=== PATIENT | female | born 1935 | race Caucasian/White ===

== ENCOUNTER 2020-11-23 11:30 | Emergency (ER) | payer MEDICARE, OTHER ==
--- NOTE | 2020-11-23 11:35 | EDM.PDOC ---
ED HPI GENERAL MEDICAL PROBLEM - General Stated Complaint: HIGH BLOOD PRESURE Time Seen by Provider: 11/23/20 11:35 Source of Information: Reports: Patient History Limitations: Reports: No Limitations - History of Present Illness INITIAL COMMENTS - FREE TEXT/NARRATIVE: 85-year-old female who reports a 9 AM she will just morning and she was going to the bathroom and felt very dizzy and had blurry vision. She also just felt weak all over. She had no chest pain. There is no nausea or vomiting. She has had some lower abdominal discomfort and some hemorrhoidal pain for about 3-4 weeks. Those seem to be troubling her today as well. She reports that it is an ache and a discomfort and a sore pain and she rates that pain as a 2/10. She has no pain elsewhere and no other pains. She apparently is supposed to have cataract surgery on this coming and she read the paper and thought that the paper said that she is not supposed to be taking her blood pressure medications for a week before the surgery. Therefore, she has not taken her blood pressure medications for the past 3 days. She states she has really not taken most of her other medicines as well because she was unsure if she was supposed to be taking those either. She went over to see her son who lives next door to her and her blood pressure was 200+ over 100+ at that time and therefore she was brought into the emergency department for evaluation. Her apparently in July of this year and she has been living by herself (with family members visiting her frequently apparently) since then and has been depressed. She talks frequently about her and how loss she feels without him. She does seem to be depressed related to this but is awake and alert and able to give a good history. There are no other associated signs or symptoms. There are no other modifying factors. 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 (see below) (Nothing.) - Related Data Allergies Allergy/AdvReac Type Severity Reaction Status Date / Time chlorpheniramine Allergy Cannot Verified 11/23/20 12:08 [From Tarci] Remember oxymetazoline [From Traci] Allergy Cannot Verified 11/23/20 12:08 Remember Penicillins Allergy Anaphylactic Verified 11/23/20 12:08 Shock pheniramine [From Traci] Allergy Cannot Verified 11/23/20 12:08 Remember phenylephrine [From Traci] Allergy Cannot Verified 11/23/20 12:08 Remember pseudoephedrine Allergy Cannot Verified 11/23/20 12:08 [From Traci] Remember simvastatin Allergy Muscle Verified 11/23/20 12:08 Aches trifluoperazine Allergy Cannot Verified 11/23/20 12:08 [From Stelazine] Remember Home Meds: Home Meds Cholecalciferol (Vitamin D3) [Vitamin D3] 2,000 unit PO DAILY 02/10/18 [History] Cinnamon Bark [Cinnamon] 500 mg PO DAILY 02/10/18 [History] Cyanocobalamin (Vitamin B-12) [Vitamin B-12] 2,000 mcg SL DAILY 02/10/18 [History] Hydrocortisone [Anusol-HC] 1 applic RECTAL BID PRN 02/10/18 [History] Levothyroxine Sodium [Levoxyl] 50 mcg PO DAILY 02/10/18 [History] Meclizine HCl 12.5 mg PO TID PRN 02/10/18 [History] NIFEdipine [Nifedipine ER] 90 mg PO DAILY 02/10/18 [History] [place]-3/DHA/Epa/Fish Oil [[place]-3 Fish Oil 1,000 MG Sfgl] 1 cap PO DAILY 02/10/18 [History] Oxybutynin Chloride 5 mg PO BID 02/10/18 [History] Ranitidine [Zantac] 75 mg PO BID 02/10/18 [History] Venlafaxine HCl [Venlafaxine HCl ER] 150 mg PO DAILY 02/10/18 [History] Vit C/E/Zn/Coppr/Lutein/Zeaxan [Preservision Areds 2 Softgel] 1 tab PO DAILY 02/10/18 [History] atenoloL [Atenolol] 50 mg PO DAILY 02/10/18 [History] atorvaSTATin Calcium [Atorvastatin Calcium] 10 mg PO BEDTIME 02/10/18 [History] hydroCHLOROthiazide [Microzide] 12.5 mg PO DAILY 02/10/18 [History] metFORMIN HCl [Metformin HCl] 500 mg PO BID 02/10/18 [History] Past Medical History HEENT History: Reports: Impaired Vision Cardiovascular History: Reports: High Cholesterol, Hypertension Gastrointestinal History: Reports: GERD, Hemorrhoids, Irritable Bowel Syndrome Musculoskeletal History: Reports: Arthritis Psychiatric History: Reports: Anxiety, Depression Endocrine/Metabolic History: Reports: Diabetes, Type II, Hypoparathyroidism, Vitamin D Deficiency - Past Surgical History HEENT Surgical History: Reports: Oral Surgery (Dental implant surgery), Tonsillectomy GI Surgical History: Reports: Appendectomy, Colonoscopy, EGD Female Surgical History: Reports: Hysterectomy Social & Family History - Tobacco Use Tobacco Use Status *Q: Unknown Ever Used Tobacco (Nonsmoker) - Alcohol Use Alcohol Use History: No - Living Situation & Occupation Living situation: Reports: Occupation: Retired ED ROS GENERAL - Review of Systems Review Of Systems: See Below Constitutional: Reports: Weakness. Denies: Fever, Chills HEENT: Reports: Glasses, Vision Change (Blurry vision). Denies: Throat Pain, Throat Swelling Respiratory: Denies: Shortness of Breath, Cough Cardiovascular: Denies: Chest Pain, Dyspnea on Exertion, Palpitations Endocrine: Denies: Polydypsia, Polyuria GI/Abdominal: Reports: Abdominal Pain (Chronic), Other (Hemorrhoidal pain). Denies: Nausea, Vomiting : Reports: Dysuria Musculoskeletal: Reports: Other (Diffuse myalgias and musculoskeletal pains that she relates to fibromyalgia.) Skin: Denies: Diaphoresis, Rash Neurological: Reports: Dizziness. Denies: Headache Psychiatric: Reports: Anxiety Hematologic/Lymphatic: Denies: Anemia, Easy Bleeding, Easy Bruising ED EXAM, GENERAL - Physical Exam Exam: See Below Exam Limited By: No Limitations General Appearance: Alert, WD/WN, Anxious Eye Exam: Bilateral Eye: EOMI, Normal Inspection, PERRL Ears: Normal External Exam, Hearing Grossly Normal Ear Exam: Bilateral Ear: Auricle Normal Nose: Normal Inspection, Normal Mucosa, No Blood Throat/Mouth: Normal Inspection, Normal Oropharynx, Normal Voice, No Airway Compromise Head: Atraumatic, Normocephalic Neck: Normal Inspection, Supple, Non-Tender, Full Range of Motion Respiratory/Chest: No Respiratory Distress, Lungs Clear, Normal Breath Sounds, No Accessory Muscle Use, Chest Non-Tender Cardiovascular: Normal Peripheral Pulses, Regular Rate, Rhythm. No: No Murmur Peripheral Pulses: 2+: Radial (L), Radial (R), Dorsalis Pedis (L), Dorsalis Pedis (R) GI/Abdominal: Normal Bowel Sounds, Soft, Non-Tender Back Exam: Normal Inspection, Full Range of Motion Extremities: Normal Inspection, Normal Range of Motion, Non-Tender, No Pedal Edema, Normal Capillary Refill Neurological: Alert, Oriented, CN II-XII Intact, Normal Cognition, No Motor/Sensory Deficits Psychiatric: Anxious, Depressed Mood Skin Exam: Warm, Dry, Intact, Normal Color, No Rash #1 Interpretation EKG Date: 11/23/20 Time: 11:33 Rhythm: NSR Rate (Beats/Min): 96 Marks: Normal P-Wave: Enlarged QRS: Normal ST-T: Other (LVH with repolarization abnormality) QT: Normal Comparison: No Change (No significant change from an EKG performed on 02/10/2018. This EKG appears to be incorrectly labeled as atrial flutter with a 4-1 block when it in fact appears to be a sinus rhythm.) Course - Vital Signs Last Recorded V/S: Last Vital Signs Temp 36.6 C 11/23/20 11:30 Pulse 90 11/23/20 11:30 Resp 17 11/23/20 11:30 BP 214/103 H 11/23/20 11:30 Pulse Ox 98 11/23/20 11:30 - Orders/Labs/Meds Orders: Active Orders 24 hr Category Date Time Status Chest 1V Frontal [CR] Stat Exams 11/23/20 11:36 Taken Sodium Chloride 0.9% [Saline Flush] Med 11/23/20 11:36 Active 10 ml FLUSH ASDIRECTED PRN Peripheral IV Insertion Adult [OM.PC] Routine Oth 11/23/20 11:36 Ordered EKG 12 Lead [EK] Routine Ther 11/23/20 11:36 Ordered Medication Orders Sodium Chloride (Sodium Chloride 0.9% 10 Ml Syringe) 10 ml FLUSH ASDIRECTED PRN PRN Reason: Keep Vein Open Last Admin: 11/23/20 12:06 Dose: 10 ml Documented by: CAIN Labs: Laboratory Tests 11/23/20 11/23/20 11/23/20 Range/Units 12:00 12:00 12:00 WBC 8.7 (3.0-10.3) x10-3/uL RBC 5.29 H (3.60-5.20) x10(6)uL Hgb 15.5 (11.4-15.5) g/dL Hct 47.8 (34.2-48.2) % MCV 90.4 (76.7-100.5) fL MCH 29.3 (23.9-33.9) pg MCHC 32.4 (31.9-34.8) g/dL RDW 13.4 (12.3-16.5) % Plt Count 259 (151-488) x10(3)uL MPV 8.2 (7.1-12.4) fL Neut % (Auto) 74.1 (30.8-76.2) % Lymph % (Auto) 16.2 L (18.4-52.1) % [place] % (Auto) 6.1 (4.4-15.7) % Eos % (Auto) 2.7 (0.6-8.1) % Baso % (Auto) 0.9 (0.2-1.5) % Neut # (Auto) 6.4 H (1.5-6.3) x10-3/uL Lymph # (Auto) 1.4 (1.0-4.4) x10-3/uL [place] # (Auto) 0.5 (0.3-1.0) x10-3/uL Eos # (Auto) 0.2 (0.0-0.8) x10-3/uL Baso # (Auto) 0.1 (0.0-0.1) x10-3/uL Sodium 144 (135-145) mmol/L Potassium 4.1 (3.5-5.3) mmol/L Chloride 106 (100-110) mmol/L Carbon Dioxide 29 (21-32) mmol/L BUN 12 (7-18) mg/dL Creatinine 1.1 H (0.55-1.02) mg/dL Est Cr Clr Drug Dosing TNP Estimated GFR (MDRD) 47 L (>60) BUN/Creatinine Ratio 10.9 (9-20) Glucose 148 H (80-116) mg/dL Calcium 10.5 H (8.6-10.2) mg/dL Magnesium 2.0 (1.8-2.5) mg/dL Total Bilirubin 0.4 (0.1-1.3) mg/dL AST 22 D (5-25) IU/L ALT 34 D (12-36) U/L Alkaline Phosphatase 104 (56-112) IU/L Troponin I 58.7 (4.0-60.3) pg/mL Total Protein 7.6 (6.0-8.0) g/dL Albumin 3.6 (3.2-4.6) g/dL Globulin 4.0 g/dL Albumin/Globulin Ratio 0.9 Meds: Medications Generic Name Dose Route Start Last Admin Trade Name Freq PRN Reason Stop Dose Admin Sodium Chloride 10 ml 11/23/20 11:36 11/23/20 12:06 Sodium Chloride 0.9% 10 Ml Syringe FLUSH 10 ml ASDIRECTED PRN Administration Keep Vein Open Discontinued Medications Generic Name Dose Route Start Last Admin Trade Name Freq PRN Reason Stop Dose Admin Lisinopril 40 mg 11/24/20 11:40 Lisinopril 40 Mg Tab PO 11/24/20 11:41 ONETIME ONE Lisinopril 40 mg 11/23/20 11:56 11/23/20 12:00 Lisinopril 40 Mg Tab PO 11/23/20 11:57 40 mg ONETIME ONE Administration Lorazepam 0.5 mg 11/23/20 12:24 11/23/20 12:28 Lorazepam 2 Mg/Ml Sdv IVPUSH 11/23/20 12:25 0.5 mg ONETIME ONE Administration Nifedipine 60 mg 11/23/20 11:38 11/23/20 11:55 Nifedipine 60 Mg Tab.Er PO 11/23/20 11:39 60 mg ONETIME ONE Administration Spironolactone 25 mg 11/23/20 11:38 11/23/20 11:55 Spironolactone 25 Mg Tab PO 11/23/20 11:39 25 mg ONETIME ONE Administration - Radiology Interpretation Free Text/Narrative:: Portable chest x-ray showed no acute disease per my read. - Re-Assessments/Exams Free Text/Narrative Re-Assessment/Exam: 11/23/20 12:40: The portable chest x-ray was normal. The white blood cell count was normal. The hemoglobin was normal. The creatinine is 1.1. LFTs are normal. T roponin was normal. An EKG showed real change from an EKG performed on 02/10/2018. The patient was given her usual blood pressure medications which included lisinopril 40 mg, nifedipine XL 60 mg and spironolactone 25 mg orally. Her blood pressure already is down into the 160 systolic and she is feeling somewhat improved. She also appears to be very anxious related to this and I will have the nursing staff give her Ativan 0.5 mg IV. The plan will be to continue to observe her and make sure that her blood pressure has normalized and her symptoms are continuing to severo. I feel she will be able to go home. 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 11/23/20 13:50: Patient feels much improved. Her blood pressure is 160/75. She has no more dizziness and no more vision problems. I have explained to her that she needs to take her medications daily. And I have asked the son to call the doctor's office to clarify what she is supposed to do with her medications. Cautions and reasons for return to the emergency department were discussed with the patient and with the son while the patient was in the emergency Department and were detailed in the patient's discharge instructions. Departure - Departure Time of Disposition: 13:57 Disposition: Home, Self-Care 01 Condition: Good (Improved) Clinical Impression: Noncompliance with medication regimen, Anxiety Hypertension Qualifiers: Hypertension type: unspecified Qualified Code(s): I10 - Essential (primary) hypertension - Discharge Information Instructions: Hypertension, Adult, [id number] Referrals: Filipe Concepcion PA [Primary Care Provider] - Additional Instructions: All of your blood tests were reassuring. Your EKG showed no real change from an EKG performed 2-1/2 years ago. There is no heart attack pattern. Your exam was reassuring. As we discussed, you need to take your medications daily as directed by your doctor. You definitely need to take your blood pressure medications every day. Call the doctor's office (on this Wednesday) that is doing your surgery to clarify what you are supposed to do with your medication. You must tell them that not taking her blood pressure medications is not an option. Increase your fluid intake. Back to the emergency department for localized area of weakness or numbness, severe headache, high fever difficulty breathing, vomiting or any other concerning signs or symptoms. Sepsis Event Note (ED) - Focused Exam Vital Signs: Vital Signs Temp Pulse Resp BP Pulse Ox 11/23/20 11:30 36.6 C 90 17 214/103 H 98 - My Orders Last 24 Hours: My Active Orders 11/23/20 11:36 Chest 1V Frontal [CR] Stat Sodium Chloride 0.9% [Saline Flush] 10 ml FLUSH ASDIRECTED PRN Peripheral IV Insertion Adult [OM.PC] Routine EKG 12 Lead [EK] Routine - Assessment/Plan Last 24 Hours: My Active Orders 11/23/20 11:36 Chest 1V Frontal [CR] Stat Sodium Chloride 0.9% [Saline Flush] 10 ml FLUSH ASDIRECTED PRN Peripheral IV Insertion Adult [OM.PC] Routine EKG 12 Lead [EK] Routine
[2020-11-23] MEDS ORDERED: Sodium Chloride 0.9% 10 ML Syringe FLUSH PRN (11:36)
[2020-11-23] MEDS ORDERED: Spironolactone 25 MG Tab PO ONE (11:38)
[2020-11-23] MEDS ORDERED: NIFEdipine 60 MG Tab.ER PO ONE (11:38)
[2020-11-23] MEDS ORDERED: LORazepam 2 MG/ML SDV IVPUSH ONE (12:24)
--- NOTE | 2020-11-25 12:39 | CR ---
INDICATION: Dizziness, high blood pressure. CHEST, ONE VIEW: An AP upright portable view of the chest 11/23/20 was compared with 10/16/20. The aorta is tortuous with calcification, as noted previously. The heart did not appear grossly enlarged. Overlying EKG leads are noted. A definite active infiltrate or effusion was not identified. IMPRESSION: 1. No acute process. 2. ASD aorta. 3. Moderate dextroconvex scoliosis again noted thoracic spine. MTDD
== END 2020-11-23 14:20 | disposition home or self-care (01) ==
LOC: FB.ED 11:30
DX: F41.9 Anxiety disorder, unspecified (principal); I10 Essential (primary) hypertension; E78.00 Pure hypercholesterolemia, unspecified; K21.9 Gastro-esophageal reflux disease without esophagitis; E11.9 Type 2 diabetes mellitus without complications; E20.9 Hypoparathyroidism, unspecified; Z91.14 Patient's other noncompliance with medication regimen; Z88.8 Allergy status to other drugs, medicaments and biological substances; Z88.0 Allergy status to penicillin; Z79.84 Long term (current) use of oral hypoglycemic drugs; Z79.899 Other long term (current) drug therapy
CPT/HCPCS: 36415; 71045; 80053; 83735; 84484; 85025; 93005; 96374; 99285-25; A9270-GY; J2060

== ENCOUNTER 2020-11-24 11:36 | Emergency (ER) | payer MEDICARE ==
--- NOTE | 2020-11-24 13:58 | EDM.PDOC ---
ED HPI GENERAL MEDICAL PROBLEM - General Chief Complaint: Genitourinary Problem Stated Complaint: abd pain Time Seen by Provider: 11/24/20 12:25 Source of Information: Reports: Patient, Family History Limitations: Reports: No Limitations - History of Present Illness INITIAL COMMENTS - FREE TEXT/NARRATIVE: c/o inc'd BP pt with a plethora of c/o's, all unrelated, very anxious in July after 68 years of marriage, lives alone on farm in ED yesterday with similar c/o's, labs neg pt has cataract surgery in [place] in 4d, she stopped 2 BP meds 3d ago and her amlodipine this AM, her BP is 157/78 here today, need to take meds was refused, pt says she may not have understood her instructions, not on ASA here with her son Abdomen Pain Score (Numeric/FACES): 2 - Related Data Allergies Allergy/AdvReac Type Severity Reaction Status Date / Time chlorpheniramine Allergy Cannot Verified 11/23/20 12:08 [From Traci] Remember oxymetazoline [From Traci] Allergy Cannot Verified 11/23/20 12:08 Remember Penicillins Allergy Anaphylactic Verified 11/23/20 12:08 Shock pheniramine [From Traci] Allergy Cannot Verified 11/23/20 12:08 Remember phenylephrine [From Traci] Allergy Cannot Verified 11/23/20 12:08 Remember pseudoephedrine Allergy Cannot Verified 11/23/20 12:08 [From Traci] Remember simvastatin Allergy Muscle Verified 11/23/20 12:08 Aches trifluoperazine Allergy Cannot Verified 11/23/20 12:08 [From Stelazine] Remember Home Meds: Home Meds Cholecalciferol (Vitamin D3) [Vitamin D3] 2,000 unit PO DAILY 02/10/18 [History] Cinnamon Bark [Cinnamon] 500 mg PO DAILY 02/10/18 [History] Cyanocobalamin (Vitamin B-12) [Vitamin B-12] 2,000 mcg SL DAILY 02/10/18 [History] Hydrocortisone [Anusol-HC] 1 applic RECTAL BID PRN 02/10/18 [History] Levothyroxine Sodium [Levoxyl] 50 mcg PO DAILY 02/10/18 [History] Meclizine HCl 12.5 mg PO TID PRN 02/10/18 [History] NIFEdipine [Nifedipine ER] 90 mg PO DAILY 02/10/18 [History] [place]-3/DHA/Epa/Fish Oil [[place]-3 Fish Oil 1,000 MG Sfgl] 1 cap PO DAILY 02/10/18 [History] Oxybutynin Chloride 5 mg PO BID 02/10/18 [History] Ranitidine [Zantac] 75 mg PO BID 02/10/18 [History] Venlafaxine HCl [Venlafaxine HCl ER] 150 mg PO DAILY 02/10/18 [History] Vit C/E/Zn/Coppr/Lutein/Zeaxan [Preservision Areds 2 Softgel] 1 tab PO DAILY 02/10/18 [History] atenoloL [Atenolol] 50 mg PO DAILY 02/10/18 [History] atorvaSTATin Calcium [Atorvastatin Calcium] 10 mg PO BEDTIME 02/10/18 [History] hydroCHLOROthiazide [Microzide] 12.5 mg PO DAILY 02/10/18 [History] metFORMIN HCl [Metformin HCl] 500 mg PO BID 02/10/18 [History] Sulfamethoxazole/Trimethoprim [Sulfamethoxazole-Tmp Ds Tablet] 1 each PO BID #10 tablet 11/24/20 [Rx] Past Medical History HEENT History: Reports: Impaired Vision Cardiovascular History: Reports: High Cholesterol, Hypertension Gastrointestinal History: Reports: GERD, Hemorrhoids, Irritable Bowel Syndrome Musculoskeletal History: Reports: Arthritis Psychiatric History: Reports: Anxiety, Depression Endocrine/Metabolic History: Reports: Diabetes, Type II, Hypoparathyroidism, Vitamin D Deficiency - Infectious Disease History Infectious Disease History: Reports: Novel Coronavirus - Past Surgical History HEENT Surgical History: Reports: Oral Surgery (Dental implant surgery), Tonsillectomy Female Surgical History: Reports: Hysterectomy Social & Family History - Family History Family Medical History: No Pertinent Family History - Caffeine Use Caffeine Use: Reports: Soda - Living Situation & Occupation Living situation: Reports: Occupation: Retired ED ROS GENERAL - Review of Systems Review Of Systems: See Below Constitutional: Reports: No Symptoms HEENT: Reports: No Symptoms Respiratory: Reports: No Symptoms Cardiovascular: Reports: No Symptoms Endocrine: Reports: No Symptoms GI/Abdominal: Reports: Other (lower abd cramps, moved bowels this AM) : Reports: No Symptoms Musculoskeletal: Reports: No Symptoms Skin: Reports: No Symptoms Neurological: Reports: Other (GARCIA at home better after APAP, slept pooly) Psychiatric: Reports: Anxiety Hematologic/Lymphatic: Reports: No Symptoms Immunologic: Reports: No Symptoms ED EXAM, GI/ABD - Physical Exam Exam: See Below Exam Limited By: No Limitations General Appearance: Alert, WD/WN, Other (visible anxious, nonill) Nose: Normal Inspection Throat/Mouth: Normal Inspection, Normal Lips Head: Atraumatic, Normocephalic Neck: Normal Inspection, Supple, Non-Tender, Full Range of Motion. No: Lymphadenopathy (R), Lymphadenopathy (L) Respiratory/Chest: No Respiratory Distress, Lungs Clear, Normal Breath Sounds Cardiovascular: Regular Rate, Rhythm, No Edema, No Murmur GI/Abdominal Exam: Soft, Non-Tender, No Distention Back Exam: Normal Inspection, Full Range of Motion. No: CVA Tenderness (R), CVA Tenderness (L) Extremities: Normal Inspection, Normal Range of Motion, Non-Tender, No Pedal Edema, Other (normal gait, turgor wnl) Neurological: Alert, Oriented, CN II-XII Intact, Normal Cognition, Normal Gait, No Motor/Sensory Deficits Psychiatric: Anxious Skin Exam: Warm, Dry, Intact, Normal Color, No Rash Lymphatic: No Adenopathy Course - Vital Signs Last Recorded V/S: Last Vital Signs Temp 36.4 C 11/24/20 11:36 Pulse 88 11/24/20 11:36 Resp 18 11/24/20 11:36 BP 157/78 H 11/24/20 11:36 Pulse Ox 95 11/24/20 11:36 - Orders/Labs/Meds Orders: Active Orders 24 hr Category Date Time Status CULTURE URINE [RM] Stat Lab 11/24/20 12:10 Received Labs: Laboratory Tests 11/24/20 Range/Units 12:10 Urine Color Yellow (YELLOW) Urine Appearance Slightly cloudy (CLEAR) Urine pH 5.0 (5.0-6.5) Ur Specific [place] 1.020 (1.010-1.025) Urine Protein 30 H (NEGATIVE) mg/dL Urine Glucose (UA) Normal (NORMAL) mg/dL Urine Ketones Negative (NEGATIVE) mg/dL Urine Occult Blood Negative (NEGATIVE) Urine Nitrite Negative (NEGATIVE) Urine Bilirubin Negative (NEGATIVE) Urine Urobilinogen Normal (NEGATIVE) mg/dL Ur Leukocyte Esterase Small H (NEGATIVE) U Hyaline Cast (Auto) Moderate H (NS) Urine RBC 0-5 (0-5) Urine WBC 5-10 H (0-5) Ur Squamous Epith Cells Moderate H (NS,R,O) Amorphous Sediment Few Urine Bacteria Moderate H (NS) - Re-Assessments/Exams Free Text/Narrative Re-Assessment/Exam: 11/24/20 14:15 abd quite soft, no local tender, inc'd BS c/w hypermotility without rushes pt quite anxious altho overall doing well needs to restart her BP meds which she agreed to do pt told she could stay at [facility] alone, may be too anxious however to live on her after being 4m ago given tmp/smx DS BID x 5d for possible UTI (mod epi's, mod bacteria, 5-0 wbc/hpf) pending UC pt plans to postpone her cataract surgery (altho that was not a recommendation that I gave) Departure - Departure Time of Disposition: 13:53 Disposition: Home, Self-Care 01 Condition: Good Clinical Impression: Colon spasm, Hyperactive colon, Anxiety, Bacteriuria - Discharge Information *PRESCRIPTION DRUG MONITORING PROGRAM REVIEWED*: Not Applicable *COPY OF PRESCRIPTION DRUG MONITORING REPORT IN PATIENT INÉS: Not Applicable Prescriptions: Sulfamethoxazole/Trimethoprim [Sulfamethoxazole-Tmp Ds Tablet] 1 each PO BID #10 tablet Instructions: Managing Anxiety, Adult, Irritable Bowel Syndrome, Adult, Urinary Tract Infection, Adult, [id number] Referrals: PCP,None [Primary Care Provider] - Forms: ED Department Discharge Additional Instructions: Continue your regular medications. Try to eat a little bit every 2 hours. Maintain fluids. For possible bladder infection, take sulfa antibiotic 2 times a day for 5 days. For cramping, take acetaminophen 500 mg 2 tabs 4 times a day for 2 days, longer if needed. For cramping, use dry or moist heat for 10 minutes every 2 hours as needed. Sepsis Event Note (ED) - Focused Exam Vital Signs: Vital Signs Temp Pulse Resp BP Pulse Ox 11/24/20 11:36 36.4 C 88 18 157/78 H 95 - My Orders Last 24 Hours: My Active Orders 11/24/20 12:10 CULTURE URINE [RM] Stat - Assessment/Plan Last 24 Hours: My Active Orders 11/24/20 12:10 CULTURE URINE [RM] Stat
== END 2020-11-24 14:15 | disposition home or self-care (01) ==
LOC: FB.ED 11:36
DX: K58.9 Irritable bowel syndrome, unspecified (principal); K31.89 Other diseases of stomach and duodenum; F41.9 Anxiety disorder, unspecified; R82.71 Bacteriuria; E78.00 Pure hypercholesterolemia, unspecified; I10 Essential (primary) hypertension; K21.9 Gastro-esophageal reflux disease without esophagitis; M19.90 Unspecified osteoarthritis, unspecified site; E11.9 Type 2 diabetes mellitus without complications; E20.9 Hypoparathyroidism, unspecified; Z88.8 Allergy status to other drugs, medicaments and biological substances; Z88.0 Allergy status to penicillin; Z79.84 Long term (current) use of oral hypoglycemic drugs; Z79.899 Other long term (current) drug therapy
CPT/HCPCS: 81001; 87086; 87088; 87186; 99284

== ENCOUNTER 2022-08-21 14:17 | Emergency (ER) | payer MEDICARE, OTHER ==
[2022-08-21 15:07] LABS: BASOPHILS ABSOLUTE AUTO 0.1 x10-3/uL (0.0-0.1); EOSINOPHILS ABSOLUTE AUTO 0.4 x10-3/uL (0.0-0.8); EOSINOPHILS PERCENT AUTO 6.4 % (0.6-8.1); HEMATOCRIT 43.3 % (34.2-48.2); HEMOGLOBIN 14.5 g/dL (11.4-15.5); LYMPHOCYTES ABSOLUTE AUTO 1.6 x10-3/uL (1.0-4.4); LYMPHOCYTES PERCENT AUTO 23.4 % (18.4-52.1); MEAN CORPUSCULAR HEMOGLOBIN 29.9 pg (23.9-33.9); MEAN CORPUSCULAR HGB CONC 33.5 g/dL (31.9-34.8); MEAN CORPUSCULAR VOLUME 89.1 fL (76.7-100.5); MEAN PLATELET VOLUME 8.7 fL (7.1-12.4); MONOCYTES ABSOLUTE AUTO 0.6 x10-3/uL (0.3-1.0); MONOCYTES PERCENT AUTO 9.5 % (4.4-15.7); NEUTROPHILS ABSOLUTE AUTO 4.1 x10-3/uL (1.5-6.3); NEUTROPHILS PERCENT AUTO 59.7 % (30.8-76.2); PLATELET COUNT,PLT 249 x10(3)uL (151-488); RED BLOOD CELL COUNT 4.87 x10(6)uL (3.60-5.20); RED CELL DISTRIBUTION WIDTH 13.6 % (12.3-16.5); WHITE BLOOD CELL COUNT,WBC 6.8 x10-3/uL (3.0-10.3)
[2022-08-21 15:10] LABS: BLOOD UREA NITROGEN,BUN 21 mg/dL (7-18); BUN/CREATININE RATIO 17.5 (9-20); CALCIUM 10.7 mg/dL (8.6-10.2); CARBON DIOXIDE,CO2 31 mmol/L (21-32); CHLORIDE,CL 102 mmol/L (100-110); CREATININE 1.2 mg/dL (0.55-1.02); EST CRCL DRUG DOSING (CG) 24.62 mL/min; ESTIMATED GFR 44 mL/min (>60); GLUCOSE RANDOM 203 mg/dL (80-116); POTASSIUM,K 3.9 mmol/L (3.5-5.3); SODIUM,NA 140 mmol/L (135-145)
[2022-08-21 15:16] LABS: A/G RATIO 0.9; ALANINE AMINOTRANSFERASE,ALT 26 U/L (12-36); ALBUMIN 3.8 g/dL (3.2-4.6); ALKALINE PHOSPHATASE 91 IU/L (56-112); ASPARTATE AMNIOTRANSFERASE,AST 22 IU/L (5-25); BILIRUBIN TOTAL 0.3 mg/dL (0.1-1.3); PROTEIN TOTAL,TP 7.9 g/dL (6.0-8.0)
[2022-08-21 15:19] LABS: C-REACTIVE PROTEIN 0.28 mg/dL (<0.33); TROPONIN I 21.3 pg/mL (4.0-60.3)
[2022-08-21 16:24] LABS: APPEARANCE,URINE CLEAR (CLEAR); BILIRUBIN,URINE NEGATIVE (NEGATIVE); COLOR,URINE YELLOW (YELLOW); GLUCOSE,URINE NORMAL (NORMAL); KETONES,URINE NEGATIVE (NEGATIVE); LEUKOCYTE ESTERASE,URINE MODERATE (NEGATIVE); NITRITE,URINE NEGATIVE (NEGATIVE); OCCULT BLOOD,URINE NEGATIVE (NEGATIVE); PROTEIN,URINE NEGATIVE (NEGATIVE); RBC,URINE 0-5 (0-5); UROBILINOGEN,URINE NORMAL (NEGATIVE); WBC,URINE 0-5 (0-5)
[2022-08-21 16:25] LABS: BACTERIA,URINE FEW (NS); HYALINE CASTS,URINE FEW (NS); SQUAMOUS EPITHELIAL CELLS,UR FEW (NS,R,O)
[2022-08-21] MEDS ORDERED: LORazepam 0.5 MG Tab PO ONE (16:33)
[2022-08-21] MEDS ORDERED: Doxycycline 100 MG Tab PO ONE (16:43)
== END 2022-08-21 17:04 | disposition home or self-care (01) ==
LOC: FB.ED 14:17
DX: J20.9 Acute bronchitis, unspecified (principal); F41.9 Anxiety disorder, unspecified; G47.00 Insomnia, unspecified; E78.00 Pure hypercholesterolemia, unspecified; I10 Essential (primary) hypertension; K21.9 Gastro-esophageal reflux disease without esophagitis; E11.9 Type 2 diabetes mellitus without complications; E20.9 Hypoparathyroidism, unspecified; Z86.16 Personal history of COVID-19; Z88.8 Allergy status to other drugs, medicaments and biological substances; Z88.0 Allergy status to penicillin; Z79.899 Other long term (current) drug therapy
CPT/HCPCS: 36415; 71046; 80053; 81001; 83605; 84484; 85025; 86140; 87040; 93005; 99284; A9270

== ENCOUNTER 2022-09-01 07:57 | Day surgery (SDC) | payer MEDICARE, OTHER ==
[2022-09-01] MEDS ORDERED: fentaNYL 100 MCG/2 ML SDV IV ONE (07:58)
[2022-09-01] MEDS ORDERED: Midazolam 1 MG/ML 2 ML SDV IV ONE (07:58)
[2022-09-01] MEDS ORDERED: Lactated Ringers 1,000 ML IV PRN (08:00)
[2022-09-01] MEDS ORDERED: Sodium Chloride 0.9% 10 ML Syringe FLUSH PRN (08:00)
[2022-09-01] MEDS ORDERED: acetaZOLAMIDE 500 MG Cap.ER PO ONE (10:00)
== END 2022-09-01 10:25 | disposition home or self-care (01) ==
LOC: FB.SDS 07:57
PROVIDERS: ATTEND Ophthalmology
DX: E11.36 Type 2 diabetes mellitus with diabetic cataract (principal); H26.9 Unspecified cataract; E11.69 Type 2 diabetes mellitus with other specified complication; E78.5 Hyperlipidemia, unspecified; E11.22 Type 2 diabetes mellitus with diabetic chronic kidney disease; N18.31 Chronic kidney disease, stage 3a; E03.9 Hypothyroidism, unspecified; G47.00 Insomnia, unspecified; K21.9 Gastro-esophageal reflux disease without esophagitis; F33.41 Major depressive disorder, recurrent, in partial remission; F41.9 Anxiety disorder, unspecified; J20.9 Acute bronchitis, unspecified; Z79.890 Hormone replacement therapy; Z79.899 Other long term (current) drug therapy; Z88.0 Allergy status to penicillin; Z88.8 Allergy status to other drugs, medicaments and biological substances
CPT/HCPCS: 00142; 66984; A9270; J2250; J3010; J3490; J7120; V2632

== ENCOUNTER 2023-02-07 14:22 | Emergency (ER) | payer MEDICARE, OTHER ==
[2023-02-07] MEDS ORDERED: Ondansetron 4 MG Tab.DIS PO ONE (14:23)
[2023-02-07] MEDS ORDERED: Sodium Chloride 0.9% 10 ML Syringe FLUSH PRN (15:02)
[2023-02-07] MEDS ORDERED: Ondansetron 4 MG/2 ML SDV IVPUSH ONE (15:06)
[2023-02-07] MEDS ORDERED: Sodium Chloride 0.9% 500 ML IV ONE (15:07)
[2023-02-07 15:33] LABS: BLOOD UREA NITROGEN,BUN 15 mg/dL (7-18); CALCIUM 10.9 mg/dL (8.6-10.2); CARBON DIOXIDE,CO2 34 mmol/L (21-32); CHLORIDE,CL 101 mmol/L (100-110); ESTIMATED GFR 55 mL/min (>60); GLUCOSE RANDOM 94 mg/dL (80-116); SODIUM,NA 138 mmol/L (135-145)
[2023-02-07 15:35] LABS: BASOPHILS ABSOLUTE AUTO 0.1 x10-3/uL (0.0-0.1); BASOPHILS PERCENT AUTO 1.1 % (0.2-1.5); EOSINOPHILS ABSOLUTE AUTO 0.2 x10-3/uL (0.0-0.8); EOSINOPHILS PERCENT AUTO 2.6 % (0.6-8.1); HEMATOCRIT 44.8 % (34.2-48.2); LYMPHOCYTES ABSOLUTE AUTO 1.6 x10-3/uL (1.0-4.4); LYMPHOCYTES PERCENT AUTO 22.6 % (18.4-52.1); MEAN CORPUSCULAR HEMOGLOBIN 30.4 pg (23.9-33.9); MEAN CORPUSCULAR HGB CONC 33.4 g/dL (31.9-34.8); MEAN CORPUSCULAR VOLUME 90.8 fL (76.7-100.5); MEAN PLATELET VOLUME 8.8 fL (7.1-12.4); MONOCYTES ABSOLUTE AUTO 0.6 x10-3/uL (0.3-1.0); NEUTROPHILS ABSOLUTE AUTO 4.7 x10-3/uL (1.5-6.3); NEUTROPHILS PERCENT AUTO 65.7 % (30.8-76.2); PLATELET COUNT,PLT 270 x10(3)uL (151-488); RED BLOOD CELL COUNT 4.93 x10(6)uL (3.60-5.20); RED CELL DISTRIBUTION WIDTH 13.5 % (12.3-16.5); WHITE BLOOD CELL COUNT,WBC 7.1 x10-3/uL (3.0-10.3)
[2023-02-07 15:36] LABS: LIPASE 42 U/L (16-77)
[2023-02-07 15:38] LABS: C-REACTIVE PROTEIN < 0.50 mg/dL (<0.50)
[2023-02-07 15:39] LABS: A/G RATIO 1.1; ALANINE AMINOTRANSFERASE,ALT 24 U/L (12-36); ALKALINE PHOSPHATASE 79 IU/L (56-112); ASPARTATE AMNIOTRANSFERASE,AST 15 IU/L (5-25); BILIRUBIN TOTAL 0.4 mg/dL (0.1-1.3); MAGNESIUM 1.9 mg/dL (1.8-2.5); PROTEIN TOTAL,TP 7.7 g/dL (6.0-8.0)
[2023-02-07 15:41] LABS: INR 0.98 (1.00-1.24); PROTHROMBIN TIME 10.1 sec (9.0-11.1); PTT,PARTIAL THROMBOPLSTIN TIME 24.2 SECONDS (24.4-33.2)
[2023-02-07] MEDS ORDERED: Iopamidol 755 Mg/ML 100 ML Bottle IV SCH (16:45)
[2023-02-07 16:55] LABS: APPEARANCE,URINE SLIGHTLY CLOUDY (CLEAR); BACTERIA,URINE FEW (NS); BILIRUBIN,URINE NEGATIVE (NEGATIVE); COLOR,URINE YELLOW (YELLOW); GLUCOSE,URINE NORMAL (NORMAL); KETONES,URINE NEGATIVE (NEGATIVE); LEUKOCYTE ESTERASE,URINE NEGATIVE (NEGATIVE); NITRITE,URINE NEGATIVE (NEGATIVE); OCCULT BLOOD,URINE NEGATIVE (NEGATIVE); PH,URINE 6.5 (5.0-6.5); PROTEIN,URINE NEGATIVE (NEGATIVE); SQUAMOUS EPITHELIAL CELLS,UR FEW (NS,R,O); UROBILINOGEN,URINE NORMAL (NEGATIVE); WBC,URINE 0-5 (0-5)
== END 2023-02-07 18:10 | disposition home or self-care (01) ==
LOC: FB.ED 14:22
DX: K58.9 Irritable bowel syndrome, unspecified (principal); E86.0 Dehydration; I10 Essential (primary) hypertension; E78.00 Pure hypercholesterolemia, unspecified; K21.9 Gastro-esophageal reflux disease without esophagitis; E11.9 Type 2 diabetes mellitus without complications; E20.9 Hypoparathyroidism, unspecified; Z88.0 Allergy status to penicillin; Z88.8 Allergy status to other drugs, medicaments and biological substances; Z88.6 Allergy status to analgesic agent; Z79.899 Other long term (current) drug therapy; Z90.49 Acquired absence of other specified parts of digestive tract; Z90.710 Acquired absence of both cervix and uterus
CPT/HCPCS: 36415; 74177; 80053; 81001; 83605; 83690; 83735; 85025; 85610; 85730; 86140; 96374; 99284; J2405; J3490; J7040; Q0162; Q9967

== ENCOUNTER 2023-06-07 17:06 | Emergency (ER) | payer MEDICARE ==
[2023-06-07] MEDS ORDERED: Ondansetron 4 MG Tab.DIS PO ONE (17:07)
[2023-06-07] MEDS ORDERED: Acetaminophen/oxyCODONE 325-5 MG Tab PO ONE (17:07)
[2023-06-07] MEDS ORDERED: Naloxone 0.4 MG/ML SDV IVPUSH PRN (17:29)
[2023-06-07] MEDS ORDERED: Sodium Chloride 0.9% 10 ML Syringe FLUSH PRN (17:29)
[2023-06-07 17:43] LABS: BASOPHILS PERCENT AUTO 0.4 % (0.2-1.5); EOSINOPHILS ABSOLUTE AUTO 0.3 x10-3/uL (0.0-0.8); EOSINOPHILS PERCENT AUTO 2.7 % (0.6-8.1); HEMATOCRIT 39.5 % (34.2-48.2); HEMOGLOBIN 13.1 g/dL (11.4-15.5); LYMPHOCYTES ABSOLUTE AUTO 1.8 x10-3/uL (1.0-4.4); LYMPHOCYTES PERCENT AUTO 16.9 % (18.4-52.1); MEAN CORPUSCULAR HEMOGLOBIN 30.6 pg (23.9-33.9); MEAN CORPUSCULAR VOLUME 92.7 fL (76.7-100.5); MEAN PLATELET VOLUME 7.8 fL (7.1-12.4); MONOCYTES PERCENT AUTO 9.1 % (4.4-15.7); NEUTROPHILS ABSOLUTE AUTO 7.4 x10-3/uL (1.5-6.3); NEUTROPHILS PERCENT AUTO 70.9 % (30.8-76.2); PLATELET COUNT,PLT 289 x10(3)uL (151-488); RED BLOOD CELL COUNT 4.26 x10(6)uL (3.60-5.20); RED CELL DISTRIBUTION WIDTH 13.6 % (12.3-16.5); WHITE BLOOD CELL COUNT,WBC 10.4 x10-3/uL (3.0-10.3)
[2023-06-07] MEDS: Ondansetron 4 MG/2 ML SDV IVPUSH ONE (17:43)
[2023-06-07] MEDS: Morphine 4 MG/ML VIAL IVPUSH ONE (17:43)
[2023-06-07 17:45] LABS: BLOOD UREA NITROGEN,BUN 17 mg/dL (7-18); BUN/CREATININE RATIO 14.2 (9-20); CALCIUM 10.1 mg/dL (8.6-10.2); CARBON DIOXIDE,CO2 32 mmol/L (21-32); CHLORIDE,CL 104 mmol/L (100-110); CREATININE 1.2 mg/dL (0.55-1.02); EST CRCL DRUG DOSING (CG) 24.17 mL/min; ESTIMATED GFR 44 mL/min (>60); GLUCOSE RANDOM 165 mg/dL (80-116); POTASSIUM,K 3.5 mmol/L (3.5-5.3); SODIUM,NA 141 mmol/L (135-145)
[2023-06-07 17:52] LABS: A/G RATIO 0.9; ALANINE AMINOTRANSFERASE,ALT 19 U/L (12-36); ALBUMIN 3.2 g/dL (3.2-4.6); ALKALINE PHOSPHATASE 71 IU/L (56-112); AMYLASE 45 U/L (25-115); ASPARTATE AMNIOTRANSFERASE,AST 12 IU/L (5-25); BILIRUBIN TOTAL 0.3 mg/dL (0.1-1.3); PROTEIN TOTAL,TP 6.9 g/dL (6.0-8.0)
[2023-06-07] MEDS: Sodium Chloride 0.9% 1,000 ML IV ONE (18:30)
[2023-06-07] MEDS: Iopamidol 755 Mg/ML 100 ML Bottle IV SCH (18:37)
[2023-06-07] MEDS: Sulfamethoxazole/Trimethoprim 800-160 MG Tab PO ONE (19:31)
== END 2023-06-07 19:46 | disposition home or self-care (01) ==
LOC: FB.ED 17:06
DX: K57.92 Diverticulitis of intestine, part unspecified, without perforation or abscess without bleeding (principal); E78.00 Pure hypercholesterolemia, unspecified; I10 Essential (primary) hypertension; K21.9 Gastro-esophageal reflux disease without esophagitis; E11.9 Type 2 diabetes mellitus without complications; Z88.8 Allergy status to other drugs, medicaments and biological substances; Z88.0 Allergy status to penicillin
CPT/HCPCS: 74177; 80053; 82150; 83690; 85025; 96361; 96374; 96375; 99284; 99284-25; A9270-GY; J2270; J2405; J7030; Q0162; Q9967